=== PATIENT | male | born 1975 | race Hispanic/Latino ===

== ENCOUNTER 2018-01-22 11:08 | Inpatient (IN) | payer SELFPAY ==
[2018-01-22 12:44] LABS: Hemoglobin 13.5 g/dL (14.0-18.0); Mean Corpuscular HGB CONC 34.8 g/dL (32.0-36.0); Mean Corpuscular Hemoglobin 30.2 pg (27.0-31.0); Mean Corpuscular Volume 86.6 fL (78.0-98.0); Mean Platelet Volume 7.5 fL (7.4-10.4); Platelet Count 441 thou/uL (130-400); RBC Distribution Width 12.2 % (11.5-14.5); Red Blood Cell (RBC) Count 4.46 mill/uL (4.70-6.10); White Blood Cell (WBC) Count 20.8 thou/uL (4.8-10.8)
[2018-01-22] MEDS ORDERED: ISOVUE-370 76%-LOCM 1 ML ONE (12:56)
[2018-01-22] MEDS ORDERED: Iopamidol 370 76% 50 ML VIAL FS ONE (12:56)
[2018-01-22 13:00] LABS: ALT (SGPT) 39 U/L (8-55); AST (SGOT) 30 U/L (5-34); Albumin 3.9 g/dL (3.5-5.0); Alkaline Phosphatase 122 U/L (40-150); Anion Gap 14 mmol/L (10-20); BUN (Urea Nitrogen) 10 mg/dL (8.9-20.6); Bilirubin, Total 1.5 mg/dL (0.2-1.2); Calc. Creatinine Clearance 0 mL/min (70-130); Calcium 9.4 mg/dL (7.8-10.44); Carbon Dioxide 20 mmol/L (22-29); Chloride 104 mmol/L (98-107); Estimated GFR-MDRD 78; Globulin 4.1 g/dL (2.4-3.5); Glucose 127 mg/dL (70-105); Lipase 13 U/L (8-78); Potassium 3.3 mmol/L (3.5-5.1); Sodium 135 mmol/L (136-145)
[2018-01-22 13:03] LABS: Band 18 % (5-11); Lymphocytes 17 % (21-51); MDiff Complete? YES; Monocytes 3 % (0-10); Neutrophil 61 % (42-75); PLT Morphology Comment Appears Increased; RBC Morphology Normal; Reactive Lymphocytes 1 % (0-10)
[2018-01-22 13:05] LABS: Bilirubin Small (Negative); Blood, Urine Negative (Negative); Clarity CLEAR (Clear); Glucose, Urine (Dipstick) Negative (Negative); Leukocyte Small (Negative); Nitrite Negative (Negative); Protein, Urine (Dipstick) 30 mg/dL (Neg-Trace); Specific Gravity, Urine 1.016 (1.002-1.036); pH, Urine 7.5 (5.0-9.0)
[2018-01-22 13:07] LABS: Bacteria/HPF None Seen HPF (None Seen); Hyaline Casts/LPF 0-3 HYALINE CAST LPF (0-3 Hyaline); Pathc Cast-AUWi Flag 0.29 (0-2.49); RBC/HPF 0-3 HPF (0-3); Squamous Epithelial 0-3 HPF (0-3); WBC/HPF 0-3 HPF (0-3)
[2018-01-22] MEDS ORDERED: Ondansetron HCl/PF 4 MG/2 ML Vial ONE (13:40)
--- NOTE | 2018-01-22 16:08 | CT ---
CT OF THE ABDOMEN AND PELVIS WITH CONTRAST: Date: 01/22/18 COMPARISON: None. HISTORY: Bilateral flank pain. TECHNIQUE: Multiple contiguous axial images were obtained in a CT of the abdomen and pelvis with contrast. PO co ntrast was administered. Coronal reformats were performed. FINDINGS: There are stranding changes in the mesentery of the sigmoid colon. There are multiple foci of free ai r adjacent to the sigmoid colon and amongst the stranding changes. There are scattered diverticula in the colon and the foci of free air are felt to come from the sigmoid diverticula. The small bowel is unremarkable. The appendix is contrast-filled. It is near the area of inflammatory change, but is normal in caliber and not likely primarily inflamed. The liver, gallbladder, kidneys, adrenal glands, spleen, and pancreas are unremarkable. No abdominal or pelvic lymphadenopathy seen. The osseous structures, visualized inferior thorax, and abdominal wall soft tissues are unremarkable. IMPRESSION: Acute diverticulitis with multiple foci of free air likely secondary to perforation. No abscess has f ormed at this time. POS: [facility]
[2018-01-22] MEDS ORDERED: Acetaminophen 500 MG TAB ONE (18:00)
[2018-01-22] MEDS: metroNIDAZOLE 500 MG in Premix Bag 1 BAG IVPB SCH (20:25)
[2018-01-22 22:23] VITALS: BMI 38.5
[2018-01-22] MEDS ORDERED: Acetaminophen 325 MG TAB PO PRN (22:53)
[2018-01-22] MEDS: Sodium Chloride 0.9% 1,000 ML IV SCH (23:11)
--- NOTE | 2018-01-23 00:05 | CON ---
DATE OF CONSULTATION: 01/22/2018 REQUESTING PHYSICIAN: Crishtian Shi DO HISTORY OF PRESENT ILLNESS: This is a 42-year-old man who presented to emergency department with a 5-day history of lower abdominal pain. Pain initially was rated at a 6-7/10 or intensified t o 10/10 today. The patient reports no fevers or chills. He had similar pain approximately one year ago, which resolved spontaneously, but not quite as severe as this episode. He admits to no hematoch ezia or melena. One year ago when he had similar pain, he had hematochezia. The patient denies any unexplained weight loss. Denies any nausea or vomiting. 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 SURGICAL HISTORY: Denies any previous surgeries. SOCIAL HISTORY: He is and lives at home with his . He denies any cigarette smoking, eth anol or illicit drug abuse. FAMILY HISTORY: Notable for both parents with diabetes mellitus. Denies any family history of coron elba artery disease, essential hypertension, or cancer. Specifically, denies any history of any gastr ointestinal disorders. PREHOSPITALIZATION MEDICATIONS: He takes some medication for his knees, does not recall the name of the medication. This was not prescribed here in [place], but provided by his mother from [facility]. ALLERGIES: Patient denies any known drug allergies. REVIEW OF SYSTEMS: Ten-point review of systems essentially unremarkable except for as stated in past medical history and chief complaint. PHYSICAL EXAMINATION: GENERAL: This reveals a 42-year-old obese man who is otherwise coherent and interactive and appears stated age. The patient is alert and oriented x3, appears to be in no significant acute distress at the time of my evaluation. He now rates his pain as 3/10, having received some intravenous analgesic s. VITAL SIGNS: Today includes blood pressure 115/70, pulse 93, respiratory rate 16, temperature 99.7 d egrees Fahrenheit, oxygen saturation is 97% on room air. HEENT: Reveals normocephalic and atraumatic. Pupils are equal, round, and reactive to light and acc ommodation. Extraocular muscles are intact bilaterally. He has no sclerae icterus present. HEART: Reveals regular rate and rhythm. No murmurs or gallops auscultated. LUNGS: Clear to auscultation bilaterally. His breathing is regular and unlabored. ABDOMEN: Soft and obese. He has left lower quadrant tenderness to palpation with gross rebound tend erness present. Liver and spleen otherwise nonpalpable below costal margins. EXTREMITIES: Reveals 2+ radial and pedal pulses bilaterally. No ankle edema is present. NEUROLOGIC: Reveals no focal deficits present. PERTINENT LABORATORY FINDINGS: Today includes a CBC with 20,800 white blood cells, hemoglobin and he matocrit of 13.5 and 38.7 respectively. Platelet count is 441,000. Differential counts as follows, 61% segmented neutrophils, 18 bands, 17 lymphocytes, and 3 monocytes. Metabolic profile: Sodium 135 , potassium is 3.3, chloride is 104, bicarbonate is 20, BUN 10, creatinine is 1.05, glucose 127, tota l bilirubin 1.5, AST and ALT 30 and 39 respectively. Serum lipase is normal at 13. Urinalysis essen tially unremarkable. I personally reviewed the CT scan of the abdomen and pelvis which is remarkable for a thickened sigmo id colonic wall with sigmoid colon mesenteric fat stranding. There are scattered small extraluminal gas, but no free fluid within the peritoneal cavity. IMPRESSION: 1. Acute sigmoid colon diverticulitis with perforation. 2. Morbid obesity. PLAN: Patient will be admitted with a broad-spectrum antibiotic therapy provided. There is no acute surgical indication for this patient at this time; however, General Surgery will follow along with y ou, make further recommendations as necessary. Ultimately, the patient will need outpatient GI evalu ation in consideration for colonoscopy. Granted this is the second occurrence of the diverticulitis this time with perforation. This patient ultimately will need a sigmoid colectomy with primary anast omosis. He most certainly will need to complete a 2-week course of antibiotic therapy on an outpatie nt basis once acute peritonitis has been resolved. Above findings and plan discussed with the patien t and his at bedside. They indicated understanding of information given. Thank you again, Dr. Shi for allowing me the opportunity to participate in the care of this pat ient.
[2018-01-23] MEDS: metroNIDAZOLE 500 MG in Premix Bag 1 BAG IVPB SCH ×2 (03:51→08:45)
--- NOTE | 2018-01-23 04:43 | HP ---
CHIEF COMPLAINT: Abdominal pain. HISTORY OF PRESENT ILLNESS: This patient is a 42-year-old male who presented [facility] the [facility]. The patient has reported that he has had some lower abdominal pain and difficulty urinating f or about 5 days. The pain is described as moderate and dull. He has had some difficulty initiating voiding during that time. He denies any fever, nausea, vomiting, or associated symptoms. The patien t was seen in the emergency department where CT scan confirmed what appeared to be diverticulitis wit h some rupture. Surgery was consulted and recommended admission to the hospital for IV antibiotics. PAST MEDICAL HISTORY: Negative. PAST SURGICAL HISTORY: Negative. FAMILY HISTORY: The patient's parents are alive and well. CURRENT MEDICATIONS: None. ALLERGIES: None. PHYSICAL EXAMINATION: VITAL SIGNS: Temperature 99.8, pulse 74, respirations 18, O2 sat 97% on room air, BP 141/83. GENERAL APPEARANCE: Age appropriate male, slightly obese, in no distress. Awake, alert, oriented, p leasant, cooperative. HEENT: PERRL. No OP lesions. NECK: Supple and symmetric without lymphadenopathy, JVD, or carotid bruits. HEART: Regular rate and rhythm without murmurs, gallop, or rubs. LUNGS: Clear to auscultation bilaterally with good chest wall expansion and air exchange. ABDOMEN: Soft, nondistended with positive bowel sounds. There is tenderness to palpation in the sup rapubic area with minimal voluntary guarding, but no significant rebound. EXTREMITIES: Warm and dry without edema. NEUROLOGIC: Appears grossly intact. LABORATORY AND DIAGNOSTIC DATA: White count 20.8, hemoglobin 13.5, platelets 441,000. Sodium 135, p otassium 3.3, chloride 104, CO2 of 20, BUN 10, creatinine 1.05, glucose 127. Urinalysis shows small leukocyte esterase, trace ketones, trace protein. CT of abdomen and pelvis reveals acute diverticuli tis with multiple foci of free air, likely secondary to perforation without abscess. ASSESSMENT AND PLAN: This patient is a generally healthy 42-year-old male who presented with lower a bdominal pain with fever, high white blood cell count and the CT scan consistent with diverticulitis with small perforation. Surgery has been consulted. We will keep the patient on Cipro, Flagyl, n.p. o., IV fluids, and await reassessment in the morning.
[2018-01-23 06:30] LABS: #Basophils 0.1 thou/uL (0.0-0.2); #Eosinphils 0.1 thou/uL (0.0-0.7); #Lymphocytes 2.6 thou/uL (1.20-3.40); #Monocytes 1.6 thou/uL (0.11-0.59); #Neutrophils 14.7 thou/uL (1.40-6.50); %Basophils 0.4 % (0.0-1.0); %Eosinophils 0.5 % (0.0-10.0); %Lymphocytes 13.5 % (21.0-51.0); %Monocytes 8.5 % (0.0-10.0); %Neutrophils 77.1 % (42.0-75.0); Hemoglobin 12.7 g/dL (14.0-18.0); Mean Corpuscular Hemoglobin 29.6 pg (27.0-31.0); Mean Corpuscular Volume 87.1 fL (78.0-98.0); Mean Platelet Volume 7.3 fL (7.4-10.4); Platelet Count 432 thou/uL (130-400); RBC Distribution Width 12.3 % (11.5-14.5); Red Blood Cell (RBC) Count 4.28 mill/uL (4.70-6.10); White Blood Cell (WBC) Count 19.1 thou/uL (4.8-10.8)
[2018-01-23 06:39] LABS: Anion Gap 12 mmol/L (10-20); BUN (Urea Nitrogen) 10 mg/dL (8.9-20.6); Calc. Creatinine Clearance 146 mL/min (70-130); Calcium 9.1 mg/dL (7.8-10.44); Carbon Dioxide 24 mmol/L (22-29); Chloride 105 mmol/L (98-107); Estimated GFR-MDRD 86; Glucose 127 mg/dL (70-105); Potassium 3.6 mmol/L (3.5-5.1); Sodium 137 mmol/L (136-145)
[2018-01-23] MEDS: Sodium Chloride 0.9% 1,000 ML IV SCH (08:51)
[2018-01-23] MEDS ORDERED: Acetaminophen 325 MG TAB PO SCH (11:02)
--- NOTE | 2018-01-23 11:19 | PRG ---
DATE OF SERVICE: 01/23/2018 SUBJECTIVE: Mr. Aponte is a 42-year-old morbidly obese man who was admitted yesterday with acute sig moid colon diverticulitis with microperforation. The patient reports slightly improved abdominal pain. He has had 3 bowel movements since admission. He denies any nausea or vomiting. PHYSICAL EXAMINATION: VITAL SIGNS: Today includes blood pressure 116/74, pulse 85, respiratory rate 16, maximum temperatur e since admission is 100.3 degrees Fahrenheit, oxygen saturation is 97% on room air. HEART: Reveals regular rate and rhythm. No murmurs or gallops auscultated. LUNGS: Clear to auscultation bilaterally. Breathing regular and unlabored. ABDOMEN: Soft and obese. He has lower abdominal tenderness to palpation with no gross rebound tende rness present. LABORATORY FINDINGS: Today includes a CBC with 19,100 white blood cells, hemoglobin and hematocrit a t 12.7 and 37.3 respectively. Platelet count is 432,000. Metabolic profile, sodium 137, potassium 3 .6, chloride is 105, bicarbonate is 24, BUN 10, creatinine 0.97, glucose 127. IMPRESSION: 1. Post-admission day #1 status post acute abdominal pain. 2. Acute sigmoid colon diverticulitis with microperforation. PLAN: We will convert antibiotic therapy to oral intake and initiate diet. We will optimize pain ma nagement. There is no acute surgical indication for this patient at this time. The patient indicates understanding of the information I have given him today including the plan.
[2018-01-23] MEDS: traMADol HCl 50 MG TAB PO PRN ×2 (11:38→21:48)
[2018-01-23] MEDS: Acetaminophen 500 MG TAB PO SCH ×3 (12:52→23:25)
[2018-01-23] MEDS: metroNIDAZOLE 500 MG TAB PO SCH ×2 (14:06→21:45)
--- NOTE | 2018-01-23 15:12 | PDOC.PN ---
- Subjective Encounter Start Date: 01/23/18 Encounter Start Time: 15:09 Subjective: c/o severe abd pain and discomfort -: nauseated - Objective MAR Reviewed: Yes Vital Signs & Weight: Vital Signs (12 hours) Temp Pulse Resp BP Pulse Ox 01/23/18 11:17 99.4 F 85 18 124/72 99 01/23/18 08:00 99.4 F 85 18 97 01/23/18 07:38 99.5 F 85 16 116/74 97 01/23/18 04:01 99.3 F 90 24 H 115/75 98 I&O: 01/22/18 01/23/18 01/24/18 06:59 06:59 06:59 Intake Total 950 Balance 950 Result Diagrams: 01/23/18 05:40 01/23/18 05:40 Additional Labs: Microbiology 01/22/18 12:18 Urine voided Urine Culture - Preliminary NO GROWTH AT 24 HOURS labs reviewed Phys Exam - Physical Examination hyperventilating,uncomfortable.diaphoretic HEENT: PERRLA, moist MMs, sclera anicteric, oral pharynx no lesions Neck: no nodes, no JVD, supple, full ROM Respiratory: no wheezing, no rales, no rhonchi, clear to auscultation bilateral Cardiovascular: RRR, no significant murmur Gastrointestinal: soft (TTP), no distention Musculoskeletal: no edema, pulses present Neurological: non-focal, normal sensation, moves all 4 limbs Psychiatric: normal affect, A&O x 3 Skin: no rash Dx/Plan (1) Sepsis Code(s): A41.9 - SEPSIS, UNSPECIFIED ORGANISM Status: Acute (2) Sigmoid diverticulitis Code(s): K57.32 - DVTRCLI OF LG INT W/O PERFORATION OR ABSCESS W/O BLEEDING Status: Acute (3) Bowel perforation Code(s): K63.1 - PERFORATION OF INTESTINE (NONTRAUMATIC) Status: Acute (4) UTI (urinary tract infection) Status: Acute - Plan continue antibiotics, PT/OT, out of bed/ambulate, DVT proph w/SCDs Cont IV ABx.no surgery per GS team -: high risk of worsening given microperf w risk of peritonitis -: urine cx pending -: add morphine for pain. -: will defer to GS for perf management.am labs * . Review of Systems - Review of Systems Constitutional: malaise. negative: fever, chills, sweats, weakness, other Respiratory: negative: Cough, Dry, Shortness of Breath, Hemoptysis, SOB with Excertion, Pleuritic Pain, Sputum, Wheezing Cardiovascular: negative: chest pain, palpitations, orthopnea, paroxysmal nocturnal dyspnea, edema, light headedness, other Gastrointestinal: Nausea, Abdominal Pain. negative: Vomiting, Diarrhea, Constipation, Melena, Hematochezia, Other Genitourinary: negative: Dysuria, Frequency, Incontinence, Hematuria, Retention , Other Musculoskeletal: negative: Neck Pain, Shoulder Pain, Arm Pain, Back Pain, Hand Pain, Leg Pain, Foot Pain, Other Skin: negative: Rash, Lesions, Walter, Bruising, Other Neurological: negative: Weakness, Numbness, Incoordination, Change in Speech, Confusion, Seizures, Other - Medications/Allergies Allergies/Adverse Reactions: Allergies Allergy/AdvReac Type Severity Reaction Status Date / Time No Known Allergies Allergy Unverified 01/22/18 16:33 Medications: Current Medications Acetaminophen (Tylenol) 1,000 mg PO Q6H [facility] Last Admin: 01/23/18 12:52 Dose: 1,000 mg Ciprofloxacin (Cipro) 750 mg PO 0600,1999 [facility] Metronidazole (Flagyl) 500 mg PO TID [facility] Last Admin: 01/23/18 14:06 Dose: 500 mg Morphine Sulfate (Morphine) 2 mg SLOW IVP Q4H PRN PRN Reason: Severe Pain (7-10) Last Admin: 01/23/18 14:06 Dose: 2 mg Sodium Chloride (Flush - Normal Saline) 10 ml IVF Q12HR [facility] Last Admin: 01/23/18 08:51 Dose: Not Given Sodium Chloride (Flush - Normal Saline) 10 ml IVF PRN PRN PRN Reason: Saline Flush Tramadol HCl (Ultram) 50 mg PO Q6H PRN PRN Reason: Moderate Pain (4-6) Tramadol HCl (Ultram) 100 mg PO Q6H PRN PRN Reason: Severe Pain (7-10) Last Admin: 01/23/18 11:38 Dose: 100 mg
[2018-01-23] MEDS: Ciprofloxacin 500 MG TAB PO SCH (20:41)
[2018-01-24] MEDS: Ciprofloxacin 500 MG TAB PO SCH ×2 (05:38→21:51)
[2018-01-24] MEDS: Acetaminophen 500 MG TAB PO SCH ×4 (05:39→23:52)
[2018-01-24 06:24] LABS: Band 31 % (5-11); Eosinophils 2 % (0-10); Hemoglobin 12.4 g/dL (14.0-18.0); Lymphocytes 14 % (21-51); MDiff Complete? YES; Mean Corpuscular HGB CONC 32.4 g/dL (32.0-36.0); Mean Corpuscular Hemoglobin 28.7 pg (27.0-31.0); Mean Corpuscular Volume 88.7 fL (78.0-98.0); Mean Platelet Volume 7.2 fL (7.4-10.4); Monocytes 4 % (0-10); Neutrophil 49 % (42-75); PLT Morphology Comment Appears Increased; Platelet Count 437 thou/uL (130-400); RBC Distribution Width 12.4 % (11.5-14.5); White Blood Cell (WBC) Count 16.2 thou/uL (4.8-10.8)
[2018-01-24 06:34] LABS: Anion Gap 13 mmol/L (10-20); BUN (Urea Nitrogen) 10 mg/dL (8.9-20.6); Calc. Creatinine Clearance 134 mL/min (70-130); Calcium 8.9 mg/dL (7.8-10.44); Carbon Dioxide 24 mmol/L (22-29); Chloride 103 mmol/L (98-107); Estimated GFR-MDRD 77; Glucose 140 mg/dL (70-105); Sodium 136 mmol/L (136-145)
[2018-01-24] MEDS: metroNIDAZOLE 500 MG TAB PO SCH ×3 (08:26→22:51)
[2018-01-24] MEDS: traMADol HCl 50 MG TAB PO PRN ×2 (08:26→14:51)
--- NOTE | 2018-01-24 12:28 | PDOC.PN ---
- Subjective Encounter Start Date: 01/24/18 Encounter Start Time: 12:26 Subjective: feels much better.abd pain better. no N/V.no diarrhea. -: NL BM today -: still using IV pain meds however - Objective MAR Reviewed: Yes Vital Signs & Weight: Vital Signs (12 hours) Temp Pulse Resp BP Pulse Ox 01/24/18 11:00 100.7 F H 93 18 129/76 98 01/24/18 08:29 99.5 F 91 18 98 01/24/18 07:33 99.5 F 91 18 110/75 98 01/24/18 03:21 99.5 F 89 16 121/81 99 I&O: 01/23/18 01/24/18 01/25/18 06:59 06:59 06:59 Intake Total 950 480 Balance 950 480 Result Diagrams: 01/24/18 05:29 01/24/18 05:29 Additional Labs: Microbiology 01/22/18 12:18 Urine voided Urine Culture - Final NO GROWTH AT 48 HOURS labs reviewed Phys Exam - Physical Examination Constitutional: NAD HEENT: PERRLA, moist MMs, sclera anicteric, oral pharynx no lesions Neck: no nodes, no JVD, supple, full ROM Respiratory: no wheezing, no rales, no rhonchi, clear to auscultation bilateral Cardiovascular: RRR, no significant murmur, no rub Gastrointestinal: soft, non-tender, no distention, positive bowel sounds Musculoskeletal: no edema, pulses present Neurological: non-focal, normal sensation, moves all 4 limbs Psychiatric: normal affect, A&O x 3 Skin: no rash Dx/Plan (1) Sepsis Code(s): A41.9 - SEPSIS, UNSPECIFIED ORGANISM Status: Acute (2) Sigmoid diverticulitis Code(s): K57.32 - DVTRCLI OF LG INT W/O PERFORATION OR ABSCESS W/O BLEEDING Status: Acute (3) Bowel perforation Code(s): K63.1 - PERFORATION OF INTESTINE (NONTRAUMATIC) Status: Acute (4) UTI (urinary tract infection) Status: Acute - Plan plan discussed w/ family, continue antibiotics, out of bed/ambulate, DVT proph w /SCDs clinically better. Pt advised to avoid narcotics for full assesment -: cont PO ABx. Diet carefully -: appreciate GS input -: likley home tomorrow if off of narcotics & stable. -: follow urine CX.AM labs * . Review of Systems - Review of Systems Constitutional: negative: fever, chills, sweats, weakness, malaise, other ENT: negative: Ear Pain, Ear Discharge, Nose Pain, Nose Discharge, Nose Congestion, Mouth Pain, Mouth Swelling, Throat Pain, Throat Swelling, Other Respiratory: negative: Cough, Dry, Shortness of Breath, Hemoptysis, SOB with Excertion, Pleuritic Pain, Sputum, Wheezing Cardiovascular: negative: chest pain, palpitations, orthopnea, paroxysmal nocturnal dyspnea, edema, light headedness, other Gastrointestinal: negative: Nausea, Vomiting, Abdominal Pain, Diarrhea, Constipation, Melena, Hematochezia, Other Genitourinary: negative: Dysuria, Frequency, Incontinence, Hematuria, Retention , Other Musculoskeletal: negative: Neck Pain, Shoulder Pain, Arm Pain, Back Pain, Hand Pain, Leg Pain, Foot Pain, Other Neurological: negative: Weakness, Numbness, Incoordination, Change in Speech, Confusion, Seizures, Other - Medications/Allergies Allergies/Adverse Reactions: Allergies Allergy/AdvReac Type Severity Reaction Status Date / Time No Known Allergies Allergy Unverified 01/22/18 16:33 Medications: Current Medications Acetaminophen (Tylenol) 1,000 mg PO Q6H [facility] Last Admin: 01/24/18 11:36 Dose: 1,000 mg Ciprofloxacin (Cipro) 750 mg PO 0600,1999 [facility] Last Admin: 01/24/18 05:38 Dose: 750 mg Metronidazole (Flagyl) 500 mg PO TID [facility] Last Admin: 01/24/18 08:26 Dose: 500 mg Morphine Sulfate (Morphine) 2 mg SLOW IVP Q4H PRN PRN Reason: Severe Pain (7-10) Last Admin: 01/24/18 04:20 Dose: 2 mg Sodium Chloride (Flush - Normal Saline) 10 ml IVF Q12HR [facility] [place] Last Admin: 01/24/18 08:27 Dose: 10 ml Sodium Chloride (Flush - Normal Saline) 10 ml IVF PRN PRN PRN Reason: Saline Flush Tramadol HCl (Ultram) 50 mg PO Q6H PRN PRN Reason: Moderate Pain (4-6) Last Admin: 01/23/18 21:48 Dose: 50 mg Tramadol HCl (Ultram) 100 mg PO Q6H PRN PRN Reason: Severe Pain (7-10) Last Admin: 01/24/18 08:26 Dose: 100 mg
--- NOTE | 2018-01-24 12:42 | PRG ---
DATE OF SERVICE: 01/24/2018 I am seeing Mr. Aponte today, a 42-year-old morbidly obese man who presented with acute sigmoid colo n diverticulitis with microperforation. The patient is awake and alert today, reporting adequate melissa n control. He is tolerating general diet, having normal bowel and urinary function. He reports 6/10 abdominal pain which is a marked improvement. He denies any nausea or vomiting. OBJECTIVE: VITAL SIGNS: Today includes blood pressure 110/75, pulse is 91, respiratory rate is 18, maximum temp erature in the last 24 hours is 99.9 degrees Fahrenheit. Oxygen saturation is 98% on room air. HEART: Reveals regular rate and rhythm, no murmurs or gallops auscultated. CHEST: Clear to auscultation bilaterally. Breathing is regular and unlabored. ABDOMEN: The abdomen is soft and obese with moderate tenderness to palpation. He clearly has no marie ound tenderness present. NEUROLOGIC: Reveals no focal deficits present. LABORATORY DATA: Pertinent laboratory findings today includes a CBC with decreasing white blood cell count 16,200, hemoglobin and hematocrit are stable at 12.4 and 38.2 respectively. Platelet count is stable at 437,000. Differential counts as follows, 49% segmented neutrophils, 31% bands, 14 lymphoc ytes, 4 monocytes and 2 eosinophils. Metabolic profile: Sodium 136, potassium is 4.0, chloride is 103, bicarbonate is 24, BUN is 10, crea tinine is 1.06, glucose is 140. IMPRESSION: 1. Post-admission day #2 status post acute sigmoid colon diverticulitis with microperforation. 2. Resolving acute peritonitis. PLAN: 1. Continue with current antibiotic regimen. 2. We will consider discharging the patient home tomorrow with outpatient antibiotic therapy for 2 w eeks. This discharge will only take place if the patient remains afebrile for at least 24 hours. The above findings and plan discussed with the patient who indicates understanding of the information given. I have answered his questions.
[2018-01-25] MEDS: traMADol HCl 50 MG TAB PO PRN ×4 (00:29→21:11)
[2018-01-25] MEDS: Acetaminophen 500 MG TAB PO SCH ×4 (05:02→23:25)
[2018-01-25] MEDS: Ciprofloxacin 500 MG TAB PO SCH (05:03)
[2018-01-25 06:37] LABS: Hemoglobin 12.6 g/dL (14.0-18.0); Mean Corpuscular HGB CONC 33.9 g/dL (32.0-36.0); Mean Corpuscular Volume 88.6 fL (78.0-98.0); Mean Platelet Volume 7.2 fL (7.4-10.4); Platelet Count 471 thou/uL (130-400); RBC Distribution Width 12.3 % (11.5-14.5); Red Blood Cell (RBC) Count 4.19 mill/uL (4.70-6.10); White Blood Cell (WBC) Count 20.8 thou/uL (4.8-10.8)
[2018-01-25 06:44] LABS: Band 28 % (5-11); Lymphocytes 11 % (21-51); MDiff Complete? YES; Monocytes 10 % (0-10); Neutrophil 51 % (42-75); PLT Morphology Comment Appears Increased
--- NOTE | 2018-01-25 08:30 | RAD ---
SINGLE VIEW ABDOMEN: Date: 01/25/18 COMPARISON: 01/22/18 CT abdomen/pelvis. HISTORY: Worsening perforation. Diverticulitis. FINDINGS: Single view of the abdomen shows a nonspecific, nonobstructed bowel gas pattern. Air is seen througho ut the colon to the level of the rectum. IMPRESSION: Unremarkable exam. POS: [facility]
[2018-01-25] MEDS ORDERED: Enoxaparin Sodium 40 MG/0.4 ML SYRINGE SC SCH (09:30)
--- NOTE | 2018-01-25 09:47 | RAD ---
SINGLE VIEW CHEST: Date: 01/25/18 COMPARISON: None. HISTORY: Fever. FINDINGS: Single view of the chest shows a normal sized cardiomediastinal silhouette. There is no evidence of c onsolidation, mass, or pleural effusion. The bones are unremarkable. IMPRESSION: No evidence of acute cardiopulmonary disease. POS: [facility]
--- NOTE | 2018-01-25 12:01 | PRG ---
DATE OF SERVICE: 01/25/2018 SUBJECTIVE: Mr. Aponte is a 42-year-old morbidly obese man with acute sigmoid colon, diverticulitis has been managed with a broad-spectrum antibiotic therapy. He remains febrile. He, however, reports may be a 2/10 abdominal pain. He tolerates general diet, having normal bowel an d urinary function. OBJECTIVE: VITAL SIGNS: This morning includes blood pressure 138/91, pulse is 100, respiratory rate is 14, temp erature is 99.9 degrees Fahrenheit, maximum temperature in the last 24 hours is 102.5 degrees Fahrenh eit, oxygen saturation is 95% on room air. HEENT: Reveals normocephalic and atraumatic. HEART: Reveals regular rate and rhythm. No murmurs or gallops auscultated. CHEST: Clear to auscultation bilaterally. Breathing is regular and unlabored. ABDOMEN: Soft, nondistended, but obese. He has mild tenderness to palpation in the suprapubic aspec t. He has no rebound tenderness present. Plain abdominal and chest x-rays today are unremarkable for any acute pathology. LABORATORY DATA: Today includes a rise in white blood cell count at 20,800, hemoglobin and hematocri t are stable at 12.6 and 37.1 respectively. Platelet count is 471,000. Metabolic profile: Sodium i s 136, potassium is 4.0, chloride is 103, bicarbonate is 24, BUN is 10, creatinine is 1.06, glucose i s 140. C-reactive protein is 30.56. IMPRESSION: Acute sigmoid colon diverticulitis with microperforation. PLAN: Continue broad-spectrum antibiotic therapy intravenously. There remains no acute surgical ind ication for this patient at this time. We will repeat CT scan of the abdomen and pelvis to rule out evolving pelvic abscess. The above findings and plan discussed with the patient and his at [facility]. They both indicated understanding of information given. I have answered their questions.
[2018-01-25] MEDS ORDERED: Saccharomyces boulardii 250 MG CAP PO SCH (12:30)
--- NOTE | 2018-01-25 13:16 | ULT ---
BILATERAL LOWER EXTREMITY VENOUS UTLRASOUND: COMPARISON: None. HISTORY: Bilateral lower extremity edema and fever. TECHNIQUE: Multiplanar, stark scale, and color Doppler images were obtained in a bilateral lower extremity venous ultrasound. Spectral analysis of the Doppler waveforms was performed. FINDINGS: Bilateral common femoral veins, profunda femoral veins, superficial femoral veins, and popliteal vein s are normal in appearance without visible thrombus. These vessels demonstrate normal compression, f low, and augmentation. The posterior tibial veins and greater saphenous veins are also patent. IMPRESSION: No evidence of deep vein thrombosis. POS: [facility]
--- NOTE | 2018-01-25 14:32 | PDOC.PN ---
- Subjective Encounter Start Date: 01/25/18 Encounter Start Time: 14:30 Subjective: high fever last night w more abd pain.no cough/SOB/diarrhea/Dysuria - Objective MAR Reviewed: Yes Vital Signs & Weight: Vital Signs (12 hours) Temp Pulse Resp BP Pulse Ox 01/25/18 11:45 99.2 F 107 H 18 137/90 99 01/25/18 08:15 99.9 F H 100 14 95 01/25/18 07:26 99.9 F H 100 14 138/91 H 95 01/25/18 04:29 99.1 F 100 17 118/76 98 I&O: 01/24/18 01/25/18 01/26/18 06:59 06:59 06:59 Intake Total 480 850 Output Total 200 Balance 480 650 Result Diagrams: 01/25/18 05:04 01/24/18 05:29 Additional Labs: Microbiology 01/22/18 12:18 Urine voided Urine Culture - Final NO GROWTH AT 48 HOURS labs reviewed Radiology Reviewed by me: Yes (CXR-NL,KUB-NL.Doppler leg-no DVT) Phys Exam - Physical Examination Constitutional: NAD HEENT: PERRLA, moist MMs, sclera anicteric, oral pharynx no lesions Neck: no nodes, no JVD, supple, full ROM Respiratory: no wheezing, no rales, no rhonchi, clear to auscultation bilateral Cardiovascular: RRR, no significant murmur, no rub Gastrointestinal: soft, non-tender, no distention, positive bowel sounds Musculoskeletal: no edema, pulses present Neurological: non-focal, normal sensation, moves all 4 limbs Psychiatric: normal affect, A&O x 3 Skin: no rash Dx/Plan (1) Sepsis Code(s): A41.9 - SEPSIS, UNSPECIFIED ORGANISM Status: Acute Comment: Blood Cx not obtained on presentation,now on ABx X > 24 hours (2) Sigmoid diverticulitis Code(s): K57.32 - DVTRCLI OF LG INT W/O PERFORATION OR ABSCESS W/O BLEEDING Status: Acute (3) Bowel perforation Code(s): K63.1 - PERFORATION OF INTESTINE (NONTRAUMATIC) Status: Acute (4) UTI (urinary tract infection) Status: Acute Comment: culture pending - Plan continue antibiotics, PT/OT, out of bed/ambulate, DVT proph w/SCDs change PO to IV ABx again. CXR,KUB WNL.No DVT -: discussed w GS- Repeat CT if symptoms not improve soon -: am labs. -: HD stable * . Review of Systems - Review of Systems Constitutional: fever, chills, sweats, weakness, malaise. negative: other ENT: negative: Ear Pain, Ear Discharge, Nose Pain, Nose Discharge, Nose Congestion, Mouth Pain, Mouth Swelling, Throat Pain, Throat Swelling, Other Respiratory: negative: Cough, Dry, Shortness of Breath, Hemoptysis, SOB with Excertion, Pleuritic Pain, Sputum, Wheezing Cardiovascular: negative: chest pain, palpitations, orthopnea, paroxysmal nocturnal dyspnea, edema, light headedness, other Gastrointestinal: Nausea, Abdominal Pain Genitourinary: negative: Dysuria, Frequency, Incontinence, Hematuria, Retention , Other Musculoskeletal: negative: Neck Pain, Shoulder Pain, Arm Pain, Back Pain, Hand Pain, Leg Pain, Foot Pain, Other Skin: negative: Rash, Lesions, Walter, Bruising, Other Neurological: negative: Weakness, Numbness, Incoordination, Change in Speech, Confusion, Seizures, Other - Medications/Allergies Allergies/Adverse Reactions: Allergies Allergy/AdvReac Type Severity Reaction Status Date / Time No Known Allergies Allergy Unverified 01/22/18 16:33 Medications: Current Medications Acetaminophen (Tylenol) 1,000 mg PO Q6H [facility] Last Admin: 01/25/18 11:43 Dose: 1,000 mg Enoxaparin Sodium (Lovenox) 40 mg SC 0900 [facility] Levofloxacin 500 mg/ Device 100 mls @ 100 mls/hr IVPB 2100 [facility] Metronidazole 500 mg/ Device 100 mls @ 100 mls/hr IVPB Q8HR [facility] Morphine Sulfate (Morphine) 2 mg SLOW IVP Q8H PRN PRN Reason: Severe Pain (7-10) Last Admin: 01/25/18 14:04 Dose: 2 mg Saccharomyces Boulardii (Florastor) 250 mg PO DAILY [facility] Sodium Chloride (Flush - Normal Saline) 10 ml IVF Q12HR [facility] Last Admin: 01/25/18 08:33 Dose: 10 ml Sodium Chloride (Flush - Normal Saline) 10 ml IVF PRN PRN PRN Reason: Saline Flush Tramadol HCl (Ultram) 50 mg PO Q6H PRN PRN Reason: Moderate Pain (4-6) Last Admin: 01/23/18 21:48 Dose: 50 mg Tramadol HCl (Ultram) 100 mg PO Q6H PRN PRN Reason: Severe Pain (7-10) Last Admin: 01/25/18 10:18 Dose: 100 mg
[2018-01-25] MEDS: metroNIDAZOLE 500 MG in Premix Bag 1 BAG IVPB SCH ×2 (14:37→21:52)
[2018-01-26] MEDS: traMADol HCl 50 MG TAB PO PRN ×3 (05:26→17:39)
[2018-01-26] MEDS: Acetaminophen 500 MG TAB PO SCH ×3 (05:27→17:36)
[2018-01-26 05:48] LABS: #Eosinphils 0.1 thou/uL (0.0-0.7); #Lymphocytes 2.3 thou/uL (1.20-3.40); #Monocytes 1.3 thou/uL (0.11-0.59); #Neutrophils 14.5 thou/uL (1.40-6.50); %Basophils 0.2 % (0.0-1.0); %Eosinophils 0.5 % (0.0-10.0); %Lymphocytes 12.5 % (21.0-51.0); %Monocytes 6.9 % (0.0-10.0); %Neutrophils 79.9 % (42.0-75.0); Mean Corpuscular HGB CONC 31.7 g/dL (32.0-36.0); Mean Corpuscular Hemoglobin 28.5 pg (27.0-31.0); Mean Corpuscular Volume 89.9 fL (78.0-98.0); Mean Platelet Volume 7.3 fL (7.4-10.4); Platelet Count 446 thou/uL (130-400); RBC Distribution Width 12.3 % (11.5-14.5); Red Blood Cell (RBC) Count 4.21 mill/uL (4.70-6.10); White Blood Cell (WBC) Count 18.2 thou/uL (4.8-10.8)
[2018-01-26 05:57] LABS: Anion Gap 13 mmol/L (10-20); BUN (Urea Nitrogen) 9 mg/dL (8.9-20.6); Calc. Creatinine Clearance 145 mL/min (70-130); Calcium 8.7 mg/dL (7.8-10.44); Carbon Dioxide 25 mmol/L (22-29); Chloride 100 mmol/L (98-107); Estimated GFR-MDRD 85; Glucose 125 mg/dL (70-105); Potassium 3.8 mmol/L (3.5-5.1); Sodium 134 mmol/L (136-145)
[2018-01-26] MEDS: metroNIDAZOLE 500 MG in Premix Bag 1 BAG IVPB SCH ×3 (06:34→22:59)
[2018-01-26] MEDS: Enoxaparin Sodium 40 MG/0.4 ML SYRINGE SC SCH (08:31)
[2018-01-26] MEDS: Saccharomyces boulardii 250 MG CAP PO SCH (08:31)
[2018-01-26] MEDS ORDERED: Ondansetron HCl/PF 4 MG/2 ML Vial IVP PRN (10:30)
--- NOTE | 2018-01-26 12:32 | CT ---
CT OF ABDOMEN AND PELVIS WITH CONTRAST: COMPARISON: 01/22/18. CLINICAL HISTORY: Flank pain, periumbilical and pelvic pain. Evaluation for abscess. FINDINGS: Redemonstration of sigmoid colitis, with progressive wall thickening of the inflamed sigmoid colon. There has been progression of extraluminal fluid as well as the inflation. Multifocal air fluid leve ls are present within this region, which re encompassed by surrounding colon and small bowel. A well -formed dominant drainable abscess is not accessible to percutaneous biopsy at this time. There is no evidence of bowel obstruction. There is a normal-caliber contrast-opacified appendix whi ch does traverse a portion of the inflammation of the low abdomen/pelvis. Solid abdominal viscera is grossly stable. There is no consolidation at the lung bases. Osseous structures remain intact. IMPRESSION: Progressive inflammation of the low abdomen. A well-formed dominant, drainable abscess is not percut aneously accessible at this time. There is progress inflammation of the sigmoid colon. A telephone call with findings was placed to the patient's physician, Douglas Bond D.O., at the [facility] of dictation 1140 hours, 01/26/18. CODE CR POS: [facility]
--- NOTE | 2018-01-26 14:11 | PDOC.PN ---
- Subjective Encounter Start Date: 01/26/18 Encounter Start Time: 14:09 (late entry) Subjective: c/o loose stools. no nausea/vomiting. -: low grade fever persists - Objective MAR Reviewed: Yes Vital Signs & Weight: Vital Signs (12 hours) Temp Pulse Resp BP Pulse Ox 01/26/18 11:07 98.8 F 95 16 119/77 99 01/26/18 08:10 99.4 F 96 18 98 01/26/18 07:29 98.2 F 94 14 110/71 98 01/26/18 04:00 99.4 F 96 18 104/69 97 I&O: 01/25/18 01/26/18 01/27/18 06:59 06:59 06:59 Intake Total 850 1950 Output Total 200 350 Balance 650 1600 Result Diagrams: 01/26/18 05:09 01/26/18 05:09 Additional Labs: labs reviewed Phys Exam - Physical Examination Constitutional: NAD HEENT: PERRLA, moist MMs, sclera anicteric, oral pharynx no lesions Neck: no nodes, no JVD, supple, full ROM Respiratory: no wheezing, no rales, no rhonchi, clear to auscultation bilateral Cardiovascular: RRR, no significant murmur Gastrointestinal: soft, no distention, positive bowel sounds TTP lower abdomen Musculoskeletal: no edema, pulses present Neurological: non-focal, normal sensation, moves all 4 limbs Psychiatric: normal affect, A&O x 3 Skin: no rash Dx/Plan (1) Sepsis Code(s): A41.9 - SEPSIS, UNSPECIFIED ORGANISM Status: Acute Comment: Blood Cx not obtained on presentation,now on ABx X > 24 hours (2) Sigmoid diverticulitis Code(s): K57.32 - DVTRCLI OF LG INT W/O PERFORATION OR ABSCESS W/O BLEEDING Status: Acute (3) Bowel perforation Code(s): K63.1 - PERFORATION OF INTESTINE (NONTRAUMATIC) Status: Acute (4) UTI (urinary tract infection) Status: Acute Comment: culture pending - Plan continue antibiotics, out of bed/ambulate, DVT proph w/SCDs repeat CT abdomen today.defer to GS for surgical intervention -: persistant fever despite IV ABx w/o any other source than abdomen -: hemodynamically stable. -: WBC tranded down somewhat.monitor. -: cont IV ABx.check C Diff * . Review of Systems - Review of Systems Constitutional: malaise. negative: fever, chills, sweats, weakness, other ENT: negative: Ear Pain, Ear Discharge, Nose Pain, Nose Discharge, Nose Congestion, Mouth Pain, Mouth Swelling, Throat Pain, Throat Swelling, Other Respiratory: negative: Cough, Dry, Shortness of Breath, Hemoptysis, SOB with Excertion, Pleuritic Pain, Sputum, Wheezing Cardiovascular: negative: chest pain, palpitations, orthopnea, paroxysmal nocturnal dyspnea, edema, light headedness, other Gastrointestinal: Abdominal Pain, Diarrhea. negative: Nausea, Vomiting, Constipation, Melena, Hematochezia, Other Genitourinary: negative: Dysuria, Frequency, Incontinence, Hematuria, Retention , Other Musculoskeletal: negative: Neck Pain, Shoulder Pain, Arm Pain, Back Pain, Hand Pain, Leg Pain, Foot Pain, Other Neurological: negative: Weakness, Numbness, Incoordination, Change in Speech, Confusion, Seizures, Other - Medications/Allergies Allergies/Adverse Reactions: Allergies Allergy/AdvReac Type Severity Reaction Status Date / Time No Known Allergies Allergy Unverified 01/22/18 16:33 Medications: Current Medications Acetaminophen (Tylenol) 1,000 mg PO Q6H [facility] Last Admin: 01/26/18 11:36 Dose: 1,000 mg Enoxaparin Sodium (Lovenox) 40 mg SC 0900 [facility] Last Admin: 01/26/18 08:31 Dose: 40 mg Levofloxacin 500 mg/ Device 100 mls @ 100 mls/hr IVPB 2100 [facility] Last Admin: 01/25/18 21:03 Dose: 100 mls Metronidazole 500 mg/ Device 100 mls @ 100 mls/hr IVPB Q8HR [facility] Last Admin: 01/26/18 06:34 Dose: 100 mls Morphine Sulfate (Morphine) 2 mg SLOW IVP Q8H PRN PRN Reason: Severe Pain (7-10) Last Admin: 01/26/18 08:32 Dose: 2 mg Ondansetron HCl (Zofran) 4 mg IVP Q4H PRN PRN Reason: Nausea/Vomiting Last Admin: 01/26/18 11:15 Dose: 4 mg Saccharomyces Boulardii (Florastor) 250 mg PO DAILY [facility] Last Admin: 01/26/18 08:31 Dose: 250 mg Sodium Chloride (Flush - Normal Saline) 10 ml IVF Q12HR [facility] Last Admin: 01/26/18 08:32 Dose: 10 ml Sodium Chloride (Flush - Normal Saline) 10 ml IVF PRN PRN PRN Reason: Saline Flush Tramadol HCl (Ultram) 50 mg PO Q6H PRN PRN Reason: Moderate Pain (4-6) Last Admin: 01/25/18 21:11 Dose: 50 mg Tramadol HCl (Ultram) 100 mg PO Q6H PRN PRN Reason: Severe Pain (7-10) Last Admin: 01/26/18 11:40 Dose: 100 mg
--- NOTE | 2018-01-26 20:54 | PRG ---
DATE OF SERVICE: 01/26/2018 SUBJECTIVE: The patient is currently on the surgical floor as the patient we were being seen in [facility]. The patient suffers from perforated diverticulum that overnight has caused him to have inc reasing pain and discomfort. He remained afebrile, but still has a considerably elevated white blood cell count of 18.2. A repeat CT with IV and p.o. contrast showed that he has a well formed dominant drainable abscess that unfortunately is not a percutaneously accessible at this time, so the patient will be made n.p.o. and taken to the operating room for a laparoscopic washout tomorrow. The patien t will also be consented for the possibility of colostomy if needed. Otherwise, the patient states t hat he is doing well. He denies any nausea and his pain is well controlled. OBJECTIVE: VITAL SIGNS: Temperature is 99.4, heart rate is 96, blood pressure 110/71, respirations 18, oxygen s aturation 98% on room air. GENERAL: Patient is resting comfortably in bed. He is awake, alert, and oriented x3. HEENT: Unremarkable. LUNGS: Clear to auscultation bilaterally with good inspiratory and expiratory effort. HEART: Regular rate and rhythm. ABDOMEN: Soft, flat with tenderness to the lower abdomen with no distinct peritoneal signs at this t anabel. EXTREMITIES: Neurovascularly intact x4. LABORATORY DATA: White blood cell count 18.2, hemoglobin 12.0, hematocrit 37.9, platelets 446. Sodi um 134, potassium 3.8, chloride 100, CO2 of 25, BUN 9, creatinine 0.98, glucose 125. RADIOGRAPHIC FINDINGS: CT of the abdomen with IV and p.o. contrast shows progressive inflammation of the lower abdomen. A well-formed dominant, drainable abscess is not percutaneously accessible at th is time. ASSESSMENT AND PLAN: 1. Perforated diverticulitis. 2. Intraabdominal abscess. PLAN: Will be to make the patient n.p.o. after midnight. Continue his IV antibiotics. Consent the patient for intraoperative procedures tomorrow. The evaluation and examination were done with Dr. Gerson zuniga this morning during rounds.
--- NOTE | 2018-01-26 22:48 | PRG ---
DATE OF SERVICE: 01/26/2018 SUBJECTIVE: Mr. Aponte is a 42-year-old morbidly obese man who was admitted 4 days ago with abdominal pain consistent with acute sigmoid colon diverticulitis with microperforation. Despite being on broad spectrum IV antibiotic therapy, the patient continues to have fever, although his abdominal pain has markedly improved. The patient, however, is tolerating a general diet and having bowel movements. OBJECTIVE: VITAL SIGNS: Today includes blood pressure 119/77, pulse 95, respiratory rate is 16, maximum temperature in the last 24 hours 102.5 degrees Fahrenheit. HEENT: Examination reveals normocephalic and atraumatic. HEART: Reveals regular rate and rhythm. No murmurs or gallops auscultated. CHEST: Clear to auscultation bilaterally. Breathing is regular and unlabored. ABDOMEN: Soft and obese. He has moderate lower abdominal tenderness to palpation with no gross rebound tenderness present. NEUROLOGIC: Examination reveals no focal deficits present. LABORATORY DATA: Laboratory findings today includes CBC with 18,200 white blood cells, hemoglobin and hematocrit 12.0 and 37.9 respectively, platelet count is 446,000. Metabolic profile: Sodium 134, potassium 3.8, chloride is 100, bicarbonate 25, BUN 9, creatinine 0.98, glucose 125. Note that the CRP yesterday was elevated at 30.56. IMAGING DATA: Repeat CT scan of the abdomen and pelvis today reveals pelvic fluid collection within the pelvis, completely encircled by small and large bowel in assessable to percutaneous drainage. There is also increasing mesenteric inflammation adjacent to the involved sigmoid colon. IMPRESSION: 1. Acute sigmoid colon diverticulitis with microperforation. 2. Acute diverticular abscess not accessible to percutaneous drainage. PLAN: Continue broad spectrum antibiotic therapy. The patient will be made n.p.o. overnight and we will proceed to the operating room for laparoscopic abdominal washout and drainage of pelvic abscess. If the patient's intra- abdominal process is not amenable to laparoscopic intervention, we will give consideration to exploratory laparotomy, sigmoidectomy with end colostomy at that time. Above findings and plan has been discussed with the patient through a check writer salesperson. I have also discussed with the patient's who is fluent with [place] language. They both indicated understanding of the information given. I have answered their questions. Patient's will be visiting her later today to further discuss the findings and plan. The patient, however, has granted consent for the proposed surgical intervention which will take place tomorrow. HOME
[2018-01-27] MEDS: traMADol HCl 50 MG TAB PO PRN ×3 (00:02→22:03)
[2018-01-27] MEDS: Acetaminophen 500 MG TAB PO SCH ×4 (00:03→17:49)
[2018-01-27] MEDS: metroNIDAZOLE 500 MG in Premix Bag 1 BAG IVPB SCH ×3 (05:32→22:59)
[2018-01-27 05:51] LABS: #Eosinphils 0.2 thou/uL (0.0-0.7); #Lymphocytes 2.4 thou/uL (1.20-3.40); #Monocytes 1.1 thou/uL (0.11-0.59); #Neutrophils 11.5 thou/uL (1.40-6.50); %Lymphocytes 15.9 % (21.0-51.0); %Monocytes 7.1 % (0.0-10.0); Hemoglobin 11.8 g/dL (14.0-18.0); Mean Corpuscular HGB CONC 32.2 g/dL (32.0-36.0); Mean Corpuscular Hemoglobin 28.5 pg (27.0-31.0); Mean Corpuscular Volume 88.7 fL (78.0-98.0); Platelet Count 454 thou/uL (130-400); RBC Distribution Width 12.2 % (11.5-14.5); Red Blood Cell (RBC) Count 4.15 mill/uL (4.70-6.10); White Blood Cell (WBC) Count 15.2 thou/uL (4.8-10.8)
[2018-01-27 06:09] LABS: Anion Gap 13 mmol/L (10-20); BUN (Urea Nitrogen) 10 mg/dL (8.9-20.6); Calc. Creatinine Clearance 159 mL/min (70-130); Calcium 9.1 mg/dL (7.8-10.44); Carbon Dioxide 27 mmol/L (22-29); Chloride 101 mmol/L (98-107); Estimated GFR-MDRD Greater than 90; Glucose 103 mg/dL (70-105); Potassium 4.1 mmol/L (3.5-5.1); Sodium 137 mmol/L (136-145)
[2018-01-27] MEDS ORDERED: Bupivacaine/Epinephrine 0.25% 30 ML VIAL ONE (07:20)
[2018-01-27] MEDS: Enoxaparin Sodium 40 MG/0.4 ML SYRINGE SC SCH (07:35)
[2018-01-27] MEDS: Saccharomyces boulardii 250 MG CAP PO SCH (07:35)
[2018-01-27] MEDS ORDERED: Fentanyl 100 MCG/2 ML VIAL ONE ×2 (08:04→10:00)
[2018-01-27] MEDS ORDERED: HYDROmorphone 0.5 MG/0.5 ML SYRINGE ONE (08:05)
--- NOTE | 2018-01-27 10:15 | OP ---
DATE OF OPERATION: 01/27/2018 PREOPERATIVE DIAGNOSES: 1. Acute sigmoid colon diverticulitis with microperforation. 2. Diverticular abscess. POSTOPERATIVE DIAGNOSES: 1. Acute sigmoid colon diverticulitis with microperforation. 2. Diverticular abscess. OPERATION PERFORMED: Laparoscopic abdominal washout. SURGEON: Dr. Bond. ANESTHESIA: General endotracheal. ESTIMATED BLOOD LOSS: Less than 5 mL. COUNTS: Sponge and instrument count certified as correct x2. COMPLICATIONS: None apparent at time of operation. INDICATIONS FOR PROCEDURE: This is a 42-year-old morbidly obese man admitted with acute sigmoid colo n diverticulitis with microperforation on broad spectrum antibiotic therapy. Repeat CT scan of the a bdomen and pelvis revealed small fluid collection which is obscuring percutaneous drainage due to adh erent bowel. Decision was made to bring the patient to the operating room today for laparoscopic abd ominal washout. Findings are consistent with markedly thick walled sigmoid colon and adherent small bowel. Once the small bowel adhesions were broken, there is small abscess which is irrigated with sa line and evacuated. No fecal contamination noted. DESCRIPTION OF PROCEDURE: Informed consent obtained from the patient who was brought to the operatin g room and placed in supine position. Following general anesthesia, Guy catheter inserted and plac ed bedside drain. Abdomen is sterilely prepped and draped in usual fashion. The skin below the umbi licus was infiltrated with 0.25% Marcaine with epinephrine. A small curvilinear infraumbilical incis ion is made using an 11 scalpel. Umbilical stalk was grasped with Sg's and elevated. Veress nee dle was inserted through the incision and placed in the peritoneal cavity through which the abdomen w as insufflated with 3.5 liters of CO2 gas. Intraabdominal pressure was noted 1 mmHg. Following abdo jazmin insufflation, Veress needle was removed and a 5 mm trocar introduced using the Visiport under l aparoscopy. Laparoscopy confirmed proper placement of the port, no injuries to underlying structures . Additional laparoscopy reveals the left lower quadrant completely encased by omental adhesions. U nder direct laparoscopy, a left lower quadrant and right lower quadrant 5 mm ports were placed after the overlying skin were infiltrated with 0.25% Marcaine with epinephrine and appropriate incisions ma de. The patient was placed in a Trendelenburg position, rotated to his right. I then used Endo suct ion catheter to breakdown adherent small bowel. A Prestige grasper was introduced through the left l ower quadrant port using this to hold the small bowel out of way. The loculations was broken down us ing the Endo suction catheter. A small abscess collection was evacuated. The pelvis was copiously i rrigated with saline until it was clear. Finding no other pathology, laparoscopy was terminated. Th e sigmoid colon was adhered to the left lateral gutter. I did not take down that adhesion. Abdomen was desufflated. All ports and instruments removed and accounted for. Skin incision was closed usin g 4-0 Vicryl suture in subcuticular fashion. Dermabond was applied over the incisions. The patient tolerated the operation without any apparent complication and was returned to recovery room in satisf actory condition.
[2018-01-27] MEDS ORDERED: Ondansetron HCl/PF 4 MG/2 ML Vial ONE (15:23)
[2018-01-27] MEDS ORDERED: Glycopyrrolate 0.2 MG/ML 5 ML SYRINGE ONE (15:23)
[2018-01-27] MEDS ORDERED: Lidocaine 1% PF 5 ML VIAL ONE (15:23)
[2018-01-27] MEDS ORDERED: PROPOFOL 200 MG/20 ML VIAL ONE (15:23)
[2018-01-27] MEDS ORDERED: Succinylcholine Chloride 20 MG/ML 10 ml SYRINGE FS ONE (15:23)
[2018-01-27] MEDS ORDERED: Dexamethasone 20 MG/5 ML VIAL ONE (15:23)
--- NOTE | 2018-01-27 18:21 | PDOC.PN ---
- Subjective Encounter Start Date: 01/27/18 Encounter Start Time: 18:20 Pt seen for followup re: acute diverticulitis. Feels better. Denies chest pain , shortness of breath, fevers or chills. - Objective MAR Reviewed: Yes Vital Signs & Weight: Vital Signs (12 hours) Temp Pulse Resp BP Pulse Ox 01/27/18 11:25 98.5 F 84 16 122/77 96 01/27/18 07:22 98.5 F 89 18 126/88 99 I&O: 01/26/18 01/27/18 01/28/18 06:59 06:59 06:59 Intake Total 1950 Output Total 350 Balance 1600 Result Diagrams: 01/27/18 04:53 01/27/18 04:53 Additional Labs: Labs reviewed by me Phys Exam - Physical Examination Obese HEENT: moist MMs, sclera anicteric, oral pharynx no lesions, 2+ tonsils Neck: no nodes, no JVD, supple, full ROM Respiratory: no wheezing, no rales, no rhonchi, clear to auscultation bilateral Cardiovascular: RRR, no rub S1, S2 Gastrointestinal: soft, non-tender, no distention, positive bowel sounds Neurological: moves all 4 limbs Psychiatric: normal affect Deviation from normal: Oriented to person and place, not to date Dx/Plan (1) Acute diverticulitis Code(s): K57.92 - DVTRCLI OF INTEST, PART UNSP, W/O PERF OR ABSCESS W/O BLEED Status: Acute Comment: continue IV levaquin and metronidazole (2) Bowel perforation Code(s): K63.1 - PERFORATION OF INTESTINE (NONTRAUMATIC) Status: Acute Comment: s/p washout by surgery (3) UTI (urinary tract infection) Status: Ruled-out Comment: final culture negative (4) Sepsis Code(s): A41.9 - SEPSIS, UNSPECIFIED ORGANISM Status: Resolved Comment: Blood Cx not obtained on presentation,now on ABx X > 24 hours - Plan * . Review of Systems - Review of Systems Constitutional: negative: fever, chills, sweats, weakness, malaise Respiratory: negative: Cough, Shortness of Breath, SOB with Excertion, Pleuritic Pain, Wheezing Cardiovascular: negative: chest pain, palpitations, orthopnea, paroxysmal nocturnal dyspnea, edema, light headedness Gastrointestinal: negative: Nausea, Vomiting, Abdominal Pain, Diarrhea, Constipation, Melena, Hematochezia Genitourinary: negative: Dysuria, Frequency, Incontinence, Hematuria, Retention Musculoskeletal: negative: Neck Pain, Shoulder Pain, Arm Pain, Back Pain, Hand Pain, Leg Pain, Foot Pain - Medications/Allergies Allergies/Adverse Reactions: Allergies Allergy/AdvReac Type Severity Reaction Status Date / Time No Known Allergies Allergy Unverified 01/22/18 16:33 Medications: Current Medications Acetaminophen (Tylenol) 1,000 mg PO Q6H [facility] Last Admin: 01/27/18 17:49 Dose: 1,000 mg Enoxaparin Sodium (Lovenox) 40 mg SC 0900 [facility] Last Admin: 01/27/18 07:35 Dose: Not Given Levofloxacin 500 mg/ Device 100 mls @ 100 mls/hr IVPB 2100 [facility] Last Admin: 01/26/18 22:00 Dose: 100 mls Metronidazole 500 mg/ Device 100 mls @ 100 mls/hr IVPB Q8HR [facility] Last Admin: 01/27/18 14:09 Dose: 100 mls Morphine Sulfate (Morphine) 2 mg SLOW IVP Q8H PRN PRN Reason: Severe Pain (7-10) Last Admin: 01/26/18 16:32 Dose: 2 mg Ondansetron HCl (Zofran) 4 mg IVP Q4H PRN PRN Reason: Nausea/Vomiting Last Admin: 01/26/18 11:15 Dose: 4 mg Saccharomyces Boulardii (Florastor) 250 mg PO DAILY [facility] Last Admin: 01/27/18 07:35 Dose: Not Given Sodium Chloride (Flush - Normal Saline) 10 ml IVF Q12HR [facility] Last Admin: 01/27/18 07:36 Dose: Not Given Sodium Chloride (Flush - Normal Saline) 10 ml IVF PRN PRN PRN Reason: Saline Flush Tramadol HCl (Ultram) 50 mg PO Q6H PRN PRN Reason: Moderate Pain (4-6) Last Admin: 01/25/18 21:11 Dose: 50 mg Tramadol HCl (Ultram) 100 mg PO Q6H PRN PRN Reason: Severe Pain (7-10) Last Admin: 01/27/18 11:19 Dose: 100 mg
[2018-01-28] MEDS: Acetaminophen 500 MG TAB PO SCH ×5 (03:57→23:58)
[2018-01-28] MEDS: metroNIDAZOLE 500 MG in Premix Bag 1 BAG IVPB SCH (05:27)
[2018-01-28] MEDS: Saccharomyces boulardii 250 MG CAP PO SCH (08:32)
[2018-01-28] MEDS: traMADol HCl 50 MG TAB PO PRN ×2 (08:32→17:00)
[2018-01-28] MEDS: Enoxaparin Sodium 40 MG/0.4 ML SYRINGE SC SCH (08:32)
[2018-01-28 10:49] LABS: #Lymphocytes 2.2 thou/uL (1.20-3.40); #Neutrophils 16.6 thou/uL (1.40-6.50); %Basophils 0.1 % (0.0-1.0); %Eosinophils 0.1 % (0.0-10.0); %Lymphocytes 11.1 % (21.0-51.0); %Monocytes 4.8 % (0.0-10.0); %Neutrophils 83.9 % (42.0-75.0); Mean Corpuscular HGB CONC 33.7 g/dL (32.0-36.0); Mean Corpuscular Hemoglobin 29.7 pg (27.0-31.0); Mean Corpuscular Volume 88.2 fL (78.0-98.0); Mean Platelet Volume 6.9 fL (7.4-10.4); Platelet Count 521 thou/uL (130-400); RBC Distribution Width 12.2 % (11.5-14.5); Red Blood Cell (RBC) Count 4.02 mill/uL (4.70-6.10); White Blood Cell (WBC) Count 19.8 thou/uL (4.8-10.8)
[2018-01-28 11:08] LABS: Anion Gap 12 mmol/L (10-20); BUN (Urea Nitrogen) 11 mg/dL (8.9-20.6); Calc. Creatinine Clearance 169 mL/min (70-130); Carbon Dioxide 23 mmol/L (22-29); Chloride 104 mmol/L (98-107); Estimated GFR-MDRD Greater than 90; Glucose 160 mg/dL (70-105); Phosphorus 2.7 mg/dL (2.3-4.7); Potassium 3.8 mmol/L (3.5-5.1); Sodium 135 mmol/L (136-145)
--- NOTE | 2018-01-28 13:24 | PDOC.PN ---
- Subjective Encounter Start Date: 01/28/18 Encounter Start Time: 07:20 Pt seen for followup re: diverticulitis. Reports feeling well, denies abdo pain or fevers. - Objective Vital Signs & Weight: Vital Signs (12 hours) Temp Pulse Resp BP Pulse Ox 01/28/18 12:00 98.6 F 80 18 150/90 H 96 01/28/18 08:50 98.5 F 76 16 121/77 96 01/28/18 08:15 98.7 F 69 16 98 I&O: 01/27/18 01/28/18 01/29/18 06:59 06:59 06:59 Intake Total 700 Balance 700 Result Diagrams: 01/28/18 10:32 01/28/18 10:32 Phys Exam - Physical Examination Obesity HEENT: moist MMs, sclera anicteric, oral pharynx no lesions, 2+ tonsils Neck: no nodes, no JVD, supple, full ROM Respiratory: no wheezing, no rales, no rhonchi, clear to auscultation bilateral Cardiovascular: RRR, no rub S1, S2 Gastrointestinal: soft, non-tender, positive bowel sounds distention Neurological: moves all 4 limbs Psychiatric: normal affect Dx/Plan (1) Acute diverticulitis Code(s): K57.92 - DVTRCLI OF INTEST, PART UNSP, W/O PERF OR ABSCESS W/O BLEED Status: Acute Comment: currently on IV levaquin and metronidazole, will continue (2) Bowel perforation Code(s): K63.1 - PERFORATION OF INTESTINE (NONTRAUMATIC) Status: Acute Comment: s/p washout by surgery service yesterday (3) UTI (urinary tract infection) Status: Ruled-out Comment: final culture negative (4) Sepsis Code(s): A41.9 - SEPSIS, UNSPECIFIED ORGANISM Status: Resolved Comment: Blood Cx not obtained on presentation,now on ABx X > 24 hours - Plan continue antibiotics, out of bed/ambulate * . Review of Systems - Review of Systems Constitutional: negative: fever, chills, sweats, weakness, malaise Respiratory: negative: Cough, Shortness of Breath, SOB with Excertion, Pleuritic Pain, Wheezing Cardiovascular: negative: chest pain, palpitations, orthopnea, paroxysmal nocturnal dyspnea, edema, light headedness Gastrointestinal: negative: Nausea, Vomiting, Abdominal Pain, Diarrhea, Constipation, Melena, Hematochezia Genitourinary: negative: Dysuria, Frequency, Incontinence, Hematuria, Retention Skin: negative: Rash, Lesions, Walter, Bruising Neurological: negative: Weakness, Numbness, Incoordination, Change in Speech, Confusion, Seizures - Medications/Allergies Allergies/Adverse Reactions: Allergies Allergy/AdvReac Type Severity Reaction Status Date / Time No Known Allergies Allergy Unverified 01/22/18 16:33 Medications: Current Medications Acetaminophen (Tylenol) 1,000 mg PO Q6H [facility] Last Admin: 01/28/18 11:34 Dose: 1,000 mg Enoxaparin Sodium (Lovenox) 40 mg SC 0900 [facility] Last Admin: 01/28/18 08:32 Dose: 40 mg Levofloxacin (Levaquin) 750 mg PO 2100 [facility] Metronidazole (Flagyl) 500 mg PO TID [facility] Morphine Sulfate (Morphine) 2 mg SLOW IVP Q8H PRN PRN Reason: Severe Pain (7-10) Last Admin: 01/26/18 16:32 Dose: 2 mg Ondansetron HCl (Zofran) 4 mg IVP Q4H PRN PRN Reason: Nausea/Vomiting Last Admin: 01/26/18 11:15 Dose: 4 mg Saccharomyces Boulardii (Florastor) 250 mg PO DAILY [facility] Last Admin: 01/28/18 08:32 Dose: 250 mg Sodium Chloride (Flush - Normal Saline) 10 ml IVF Q12HR [facility] Last Admin: 01/28/18 08:32 Dose: 10 ml Sodium Chloride (Flush - Normal Saline) 10 ml IVF PRN PRN PRN Reason: Saline Flush Tramadol HCl (Ultram) 50 mg PO Q6H PRN PRN Reason: Moderate Pain (4-6) Last Admin: 01/28/18 08:32 Dose: 50 mg Tramadol HCl (Ultram) 100 mg PO Q6H PRN PRN Reason: Severe Pain (7-10) Last Admin: 01/27/18 22:03 Dose: 100 mg
[2018-01-28] MEDS: metroNIDAZOLE 500 MG TAB PO SCH ×2 (14:32→21:26)
[2018-01-29 05:46] LABS: #Eosinphils 0.1 thou/uL (0.0-0.7); #Monocytes 1.3 thou/uL (0.11-0.59); #Neutrophils 12.8 thou/uL (1.40-6.50); %Basophils 0.2 % (0.0-1.0); %Eosinophils 0.3 % (0.0-10.0); %Lymphocytes 17.6 % (21.0-51.0); %Monocytes 7.6 % (0.0-10.0); %Neutrophils 74.4 % (42.0-75.0); Hemoglobin 12.1 g/dL (14.0-18.0); Mean Corpuscular Hemoglobin 29.4 pg (27.0-31.0); Mean Corpuscular Volume 89.1 fL (78.0-98.0); Mean Platelet Volume 6.9 fL (7.4-10.4); Platelet Count 522 thou/uL (130-400); RBC Distribution Width 12.3 % (11.5-14.5); Red Blood Cell (RBC) Count 4.13 mill/uL (4.70-6.10); White Blood Cell (WBC) Count 17.2 thou/uL (4.8-10.8)
[2018-01-29] MEDS: Acetaminophen 500 MG TAB PO SCH ×2 (06:05→12:07)
[2018-01-29] MEDS: traMADol HCl 50 MG TAB PO PRN ×2 (06:05→12:07)
[2018-01-29 06:11] LABS: Anion Gap 8 mmol/L (10-20); BUN (Urea Nitrogen) 13 mg/dL (8.9-20.6); Calc. Creatinine Clearance 148 mL/min (70-130); Calcium 8.7 mg/dL (7.8-10.44); Carbon Dioxide 27 mmol/L (22-29); Chloride 102 mmol/L (98-107); Estimated GFR-MDRD 87; Glucose 104 mg/dL (70-105); Phosphorus 2.7 mg/dL (2.3-4.7); Potassium 3.7 mmol/L (3.5-5.1); Sodium 133 mmol/L (136-145)
[2018-01-29] MEDS: Saccharomyces boulardii 250 MG CAP PO SCH (08:16)
[2018-01-29] MEDS: Enoxaparin Sodium 40 MG/0.4 ML SYRINGE SC SCH (08:16)
[2018-01-29] MEDS: metroNIDAZOLE 500 MG TAB PO SCH ×2 (08:16→15:15)
[2018-01-29 15:29] VITALS: BP 110/74; TEMP 98.3
--- NOTE | 2018-01-30 01:11 | DIS ---
PRIMARY CARE PROVIDER: None. DATE OF ADMISSION: 01/22/2018 DATE OF DISCHARGE: 01/29/2018 DISCHARGE DIAGNOSES: 1. Acute diverticulitis. 2. Microperforation. CONSULTATIONS DURING THIS HOSPITALIZATION: General Surgery, Dr. Douglas Bond. CONDITION OF PATIENT ON THE DAY OF DISCHARGE: Stable. I assessed Mr. Aponte on the day of discharge . He denies any chest pain or shortness of breath. He denies any abdominal pain. Vital signs are s table. S1 and S2 are heard, regular. Lungs are clear to auscultation bilaterally. Abdomen is soft, nontender, bowel sounds are heard. DISCHARGE MEDICATIONS: Tramadol 50 mg every 6 hours as needed. HOSPITAL COURSE: Mr. Aponte is a pleasant 42-year-old gentleman, who was admitted to [facility] on 01/22/2018 for acute diverticulitis as well as microperforation. Please refer to Dr. Tijerina's history and physical note dated 01/22/2018 for further details regarding this admiss ion. He was seen by General Surgery Service. He was started on antibiotics. He had repeat CT scan of the abdomen and pelvis on 02/03/2018, which showed progressive inflammation of the low abdomen. Job silva was taken to the operating room on 01/27/2018 and underwent laparoscopic abdominal washout. He is being discharged home on tramadol, no antibiotics per General Surgery Service. General Surgery Libbyi martina will follow up with him as outpatient. He is advised to seek medical attention if he develops any new or worsening symptoms, including fever or abdominal pain. On the day of discharge, he has sodium 133, potassium 3.7, creatinine 0.96, white count 17,200, hemog lobin 12.1, and platelet count 522,000. He is advised to seek a primary care provider and follow up within 3-5 days. DISCHARGE DESTINATION: Home. TOTAL AMOUNT OF TIME SPENT COORDINATING THIS DISCHARGE: 33 minutes.
== END 2018-01-29 15:22 | disposition home or self-care (01) | DRG 392 ==
LOC: ERS 11:08 → SURG B 19:58
PROVIDERS: ADMIT Family Medicine; ATTEND Family Medicine
PROC: 3E1M38Z Irrigation of Peritoneal Cavity using Irrigating Substance, Percutaneous Approach (ICD-10-PCS; principal; 2018-01-27)
PROC: 0D9W40Z Drainage of Peritoneum with Drainage Device, Percutaneous Endoscopic Approach (ICD-10-PCS; 2018-01-27)
DX: K57.20 Diverticulitis of large intestine with perforation and abscess without bleeding (principal); E66.01 Morbid (severe) obesity due to excess calories; Z68.38 Body mass index [BMI] 38.0-38.9, adult
CPT/HCPCS: 36415; 71045; 74018; 74177; 80048; 80053; 81003; 81015; 83690; 83735; 84100; 85007; 85025; 85027; 86140; 86850; 86900; 86901; 87086; 87324; 87449; 93970; 96365; 96367; 96375; A4216; J0744; J1100; J1170; J1650; J1956; J2001; J2270; J2405; J2704; J3010